=== PATIENT | male | born 1985 | race Caucasian/White ===

== ENCOUNTER 2022-07-14 14:45 | Emergency (ER) | payer SELFPAY ==
[2022-07-14 14:46] VITALS: BP 114/84; PULSE 119; RESP 16; TEMP 37.1; O2SAT 100; BMI 31.3
[2022-07-14 15:20] LABS: Absolute Lymphocyte Count 2.44 X10^3/uL (0.83-4.51); Absolute Neutrophil Count 6.5 X10^3/uL (2.0-7.7); Basophil# 0.06 X10^3/uL; Basophil% 0.6 % (0-1); Eosinophil# 0.07 X10^3/uL; Eosinophils% 0.7 % (0-5); Hematocrit 49.4 % (40-54); Hemoglobin 17.3 g/dL (13.0-16.5); Lymphocyte # 2.44 X10^3/ul (0.83-4.51); Lymphocyte % 24.4 % (19-41); Mean Corpuscular Hgb 30.7 pg (27.0-32.0); Mean Corpuscular Volume 87.7 fL (80-94); Mean Platelet Vol. 9.7 fl (6.2-12.0); NRBC Flagged by Analyzer 0 % (0-5); Platelet Count 241 K/mm3 (150-450); RBC Distribution Width CV 11.9 % (11.6-14.6); RBC Distribution Width SD 38.3 fl (35.1-43.9); Red Blood Count 5.63 M/mm3 (4.6-6.2)
--- NOTE | 2022-07-14 15:21 | CT_ITS ---
STUDY: CT BRAIN WITHOUT CONTRAST REASON FOR EXAM: Male, 37 years old. Change in mental status RADIATION DOSAGE (If Supplied By Facility): CTDIvol = ( 44.99 ) mGy, DLP = ( 762.36 ) mGycm TECHNIQUE: Transaxial CT imaging of the brain was performed without administration of intravenous contrast material. Individualized dose optimization techniques were used for this CT. COMPARISON: None. FINDINGS: Asymmetric hyperdensity seen in the left transverse sinus region, which I suspect to be normal preferential flow variant to the left compared to the right rather than an intraluminal thrombus or possible layering subdural blood. Normal soft tissue structures. Normal calvarium. Normal size ventricles and extra-axial spaces for the patient''s age. Normal white matter tracts of the cerebral hemispheres. Normal basal ganglia and thalami. Normal brainstem. Normal cerebellum. There is no intracranial hemorrhage. There are no findings of an acute ischemic infarction. Normal visualized paranasal sinuses. CT/Brain/Head without Contrast IMPRESSION: 1. Asymmetric hyperdensity seen in the left transverse sinus region, which I suspect to be normal preferential flow variant to the left compared to the right rather than an intraluminal thrombus or possible layering subdural blood (see images 11 through 16/41 series 2). Otherwise the remaining aspects of the brain are normal. 2. Further assessment with MRI can be obtained if clinically indicated Electronically Signed: Reyes Esquivel MD at 15:48 EDT ,
[2022-07-14 15:27] VITALS: BP 123/86; PULSE 88; RESP 19; TEMP 36.7; O2SAT 96
[2022-07-14 15:39] LABS: Red Blood Cells-Urine 0 SEEN /hpf (0-5)
[2022-07-14 16:02] LABS: Anion Gap 7 (5-15); BUN 7 mg/dL (7-18); BUN/Creat Ratio 6.5 RATIO (10-20); Calcium,Total 9.7 mg/dL (8.5-10.1); Chloride 107 mmol/L (98-107); Creatinine, Serum 1.08 mg/dL (0.70-1.30); EST Glomerular Filtration Rate 82 mL/min (>60); Est Glom Filt Rate - Afr Amer 99 mL/min (>60); Estimated Creatinine Clearance 88.41 ml/min; Glucose 111 mg/dL (74-106); Potassium 3.9 mmol/L (3.5-5.1); Sodium Level 142 mmol/L (136-145)
[2022-07-14 16:06] LABS: Color, Urine Yellow (Yellow); Glucose, Dipstick Normal (Normal); Ketone-Dipstick 5 mg/dl (Negative); Leukocyte Esterase-Dipstick 25 /ul (Negative); Nitrite-Dipstick Negative (Negative); Occult Blood-Urine Negative /ul (Negative); Protein-Dipstick 15 mg/dl (Negative); Urine Bilirubin Dipstick Negative (Negative); Urine Clarity Clear (Clear); Urine Urobilinogen Normal (Normal)
[2022-07-14 16:09] LABS: Amphetamine Urine VISTA NEGATIVE (<1000 ng/mL); Barbiturate Urine VISTA NEGATIVE (< 200 ng/mL); Benzodiazepine Urine VISTA NEGATIVE (< 200 ng/mL); Cocaine Urine VISTA NEGATIVE (< 300 ng/mL); Ecstacy Urine VISTA NEGATIVE (< 500 ng/mL); Methadone Urine VISTA NEGATIVE (< 300 ng/mL); PCP Urine VISTA NEGATIVE (< 25 ng/mL); THC Urine VISTA NEGATIVE (< 50 ng/mL); Vista UDS pH Range 4
[2022-07-14 16:30] LABS: Alcohol, Blood (Medical)-Serum < 3.0 mg/dL
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
[2022-07-14 17:14] VITALS: BP 115/79; PULSE 74; RESP 18; TEMP 36.9; O2SAT 93
[2022-07-14 18:30] LABS: Squamous Epithelial Cells - UA 0-5 SEEN /hpf (0-5); White Blood Cells 0-5 SEEN /hpf (0-5)
[2022-07-14 18:31] LABS: Bacteria 1+ /hpf (None Seen); Fine Granular Cast- Urine 5-10 SEEN /lpf (0-5); Mucous, Urine 4+ /hpf (<or=2+)
[2022-07-14 19:41] LABS: Thyroid Stim Hormone (TSH) 1.79 uIU/mL (0.358-3.74)
--- NOTE | 2022-07-14 20:12 | ED.RN ---
crisis here to see patient at this time
--- NOTE | 2022-07-14 20:28 | ED.RN ---
crisis eval patient working on placement for patient at this time
[2022-07-14 22:46] VITALS: BP 125/76; PULSE 76; RESP 18; O2SAT 98
--- NOTE | 2022-07-14 22:53 | ED.RN ---
patient has been referred to [facility] at this time waiting phone call back
--- NOTE | 2022-07-15 02:30 | ED.RN ---
[facility] called and updated on patient condition and status. They will call back with possible admission
--- NOTE | 2022-07-15 03:29 | ED.RN ---
[facility] SET UP TRANSPORT FOR PATIENT WITH [facility] ETA [id number]
--- NOTE | 2022-07-15 05:51 | NURSING ---
pt in doorway of room yelling at staff demanding his clothes, food and wanting to leave. This nurse explained to pt he is pink slipped. offered pt food staff has available on unit. pt refused thats the same shit you gave me last night pt walking out into hallway demanding to leave talking about Kedar Berry keeping him here not allowing him to leave his house for days or feeding him. pt now resting in his room. beverage given.
[2022-07-15 06:01] VITALS: BP 117/64; PULSE 68; RESP 18; TEMP 37.1; O2SAT 97
[2022-07-15 06:02] VITALS: BP 117/64
--- NOTE | 2022-07-15 06:17 | NURSING ---
attempted to contact pt mother Patsy, no answer and the voicemail box is full.
--- NOTE | 2022-07-15 06:18 | NURSING ---
report given to Dianna at [facility]
== END 2022-07-15 07:33 ==
PROVIDERS: Emergency Provider Emergency Medicine; Visit Provider Emergency Medicine
DX: F23 Brief psychotic disorder (principal); F22 Delusional disorders; F17.210 Nicotine dependence, cigarettes, uncomplicated; Z20.822 Contact with and (suspected) exposure to COVID-19
CPT/HCPCS: 36415; 70450; 80048; 80307; 81001; 82077; 84443; 85025; 87811; 99285